=== PATIENT | male | born 1990 | race Caucasian/White ===

== ENCOUNTER 2017-06-23 10:11 | Inpatient (IN) | payer OTHER ==
[2017-06-23 10:36] VITALS: BMI 29.5
--- NOTE | 2017-06-23 15:22 | HP ---
COWS - Scale Resting Pulse: 1= [place] 81-100 Sweatin= Chills/Flushing Restless Observation: 3= Extraneous Movement Pupil Size: 0= Normal to Room Light Bone or Joint Aches: 4=Acute Joint/Muscle Pain Runny Nose/ Eye Tearin= None GI Upset > 30mins: 0= None Tremor Observation: 1= Tremor [place], Not Seen Yawning Observation: 1= 1-2x During Session Anxiety or Irritability: 2=Irritable/Anxious Goose Flesh Skin: 0=Smooth Skin COWS Score: 13 Admission ROS S - HPI Chief Complaint: WITHDRAWAL SX FROM HEROIN Allergies/Adverse Reactions: Allergies Allergy/AdvReac Type Severity Reaction Status Date / Time No Known Allergies Allergy Verified 06/23/17 12:45 History of Present Illness: 26 Y/O H/MALE WITH A HX HEROIN AND COCAINE DEPENDENCE SEEKING DETOX [place]. Exam Limitations: No Limitations - Ebola screening Have you traveled outside of the country in the last 21 days: No Have you had contact with anyone from an Ebola affected area: No Have you been sick,other than usual withdrawal symptoms: No Do you have a fever: No - Review of Systems Constitutional: Chills, Night Sweats EENT: reports: Blurred Vision (WEARS GLASSES), Tearing, Nose Congestion Respiratory: reports: No Symptoms reported Cardiac: reports: Lightheadedness GI: reports: Constipated, Poor Fluid Intake : reports: Dysuria Musculoskeletal: reports: Back Pain, Muscle Pain Integumentary: reports: Bruising (IVD INJ SITES ON BOTH ELBOWS) Neuro: reports: Headache, Dizziness Endocrine: reports: No Symptoms Reported Hematology: reports: No Symptoms Reported Psychiatric: reports: Orientated x3, Anxious Other Systems: Reviewed and Negative Patient History - Patient Medical History Hx Anemia: No Hx Asthma: No Hx Chronic Obstructive Pulmonary Disease (COPD): No Hx Cancer: No Hx Cardiac Disorders: No Hx Congestive Heart Failure: No Hx Hypertension: No Hx Hypercholesterolemia: No Hx Pacemaker: No HX Cerebrovascular Accident: No Hx Seizures: No Hx Dementia: No Hx Diabetes: No Hx Gastrointestinal Disorders: No Hx Liver Disease: No Hx Genitourinary Disorders: No Hx Sexually Transmitted Disorders: Yes (GENITAL HERPES HX) Hx Renal Disease (ESRD): No Hx Thyroid Disease: No Hx Human Immunodeficiency Virus (HIV): No (NEGATIVE HX) Hx Hepatitis C: No Hx Depression: Yes (ON/OFF--WANTS TO SEE PSYCH MD) Hx Suicide Attempt: No (DENIES) Hx Bipolar Disorder: No Hx Schizophrenia: No - Patient Surgical History Past Surgical History: No Hx Neurologic Surgery: No Hx Cataract Extraction: No Hx Cardiac Surgery: No Hx Lung Surgery: No Hx Breast Surgery: No Hx Breast Biopsy: No Hx Abdominal Surgery: No Hx Appendectomy: No Hx Cholecystectomy: No Hx Genitourinary Surgery: No Hx Section: No Hx Orthopedic Surgery: No Anesthesia Reaction: No - PPD History Previous Implant?: Yes Documented Results: Negative w/o proof Date: 08/27/15 Results: 0 mm - Smoking Cessation Smoking history: Current every day smoker Have you smoked in the past 12 months: Yes Aproximately how many cigarettes per day: 20 Cigars Per Day: 0 Hx Chewing Tobacco Use: No Initiated information on smoking cessation: Yes 'Breaking Loose' booklet given: 06/24/17 - Substances Abused Heroin Route: Injection Frequency: Daily Amount used: 5 bags Age of first use: 20 Date of Last Use: 06/22/17 Crack Route: Smoking Frequency: 1-3 times last 30 days Amount used: 1 bag Age of first use: 23 Date of Last Use: 06/22/17 Family Disease History - Family Disease History Family Disease History: Diabetes: Grandparent (GM-) Admission Physical Exam BHS - Vital Signs Vital Signs: Vital Signs - 24 hr 06/23/17 10:33 Temperature 98.1 F Pulse Rate 89 Respiratory 18 Rate Blood Pressure 116/70 - Physical General Appearance: Yes: Moderate Distress, Irritable, Anxious, Other (FATIGUE.) HEENTM: Yes: EOMI, Normocephalic, ROSE[place]N, Pharynx Normal Respiratory: Yes: Chest Non-Tender, Lungs Clear, Normal Breath Sounds, No Respiratory Distress Neck: Yes: No masses,lesions,Nodules, Supple, Trachea in good position Breast: Yes: Breast Exam Deferred Cardiology: Yes: Regular Rhythm, Regular Rate, S1, S2 Abdominal: Yes: Normal Bowel Sounds, Non Tender, Soft Genitourinary: Yes: Other (N/C) Back: Yes: Within Normal Limits Musculoskeletal: Yes: full range of Motion, Gait Steady Extremities: Yes: Normal Range of Motion, Other (HARD PAINFUL SWELLINGS ON BOTH ANTICUBITAL SPACES DUE TO IVD INJ.) Neurological: Yes: agricultural sales representative II-XII NML intact, Fully Oriented, Alert, Motor Strength 5/5 Integumentary: Yes: Dry, Warm Lymphatic: Yes: Within Normal Limits - Diagnostic (1) Abscess of right arm Current Visit: Yes Status: Acute Comment: BOTH ARMS -- RIGHT MORE THAN LEFT ARM. (2) Opioid dependence with withdrawal Current Visit: Yes Status: Acute (3) Cocaine dependence Current Visit: Yes Status: Acute Qualifiers: Substance use status: uncomplicated Qualified Code(s): F14.20 - Cocaine dependence, uncomplicated (4) Nicotine dependence Current Visit: Yes Status: Chronic Qualifiers: Nicotine product type: cigarettes Substance use status: in withdrawal Qualified Code(s): F17.213 - Nicotine dependence, cigarettes, with withdrawal Cleared for Admission [facility] - Detox or Rehab [facility] Level of Care: Medically Managed Detox Regimen/Protocol: Methadone [facility] Breath Alcohol Content Breath Alcohol Content: 0 Urine Drug Screen - Results Drug Screen Negative: No Urine Drug Screen Results: MIRTA-Cocaine, OPI-Opiates, OXY-Oxycodone
[2017-06-23] MEDS ORDERED: NICOTINE POLACRILEX 4 MG GUM BC PRN (15:43)
[2017-06-23] MEDS ORDERED: LOPERAMIDE HCL 2 MG CAPSULE PO PRN (15:43)
[2017-06-23] MEDS ORDERED: P-EPHED 60MG/TRIPROLIDI 2.5MG TABLET PO PRN (15:43)
[2017-06-23] MEDS ORDERED: guaiFENesin/D-METHORPHAN HB 10 ML UNIT-DOSE CUPS PO PRN (15:43)
[2017-06-23] MEDS ORDERED: MAGNESIUM CITRATE 300 ML BOTTLE PO PRN (15:43)
[2017-06-23] MEDS ORDERED: MAG HYDROX/AL HYDROX/SIMETH 30 ML UNIT-DOSE CUP PO PRN (15:43)
[2017-06-23] MEDS ORDERED: MENTHOL/PHENOL 1 EACH UD MM PRN (15:43)
[2017-06-23] MEDS ORDERED: MAGNESIUM HYDROX 2400MG/30ML ORAL SUSPENSION 30 ML CUP PO PRN (15:43)
[2017-06-23] MEDS ORDERED: ACETAMINOPHEN 325 MG TABLET (FP) PO PRN (15:43)
[2017-06-23] MEDS ORDERED: IBUPROFEN 400 MG TABLET (FP) PO PRN (15:43)
[2017-06-23] MEDS ORDERED: METHADONE HCL 10 MG TABLET (FOR DETOX USE ONLY) PO ONE ×2 (15:54→23:00)
[2017-06-23] MEDS ORDERED: METHADONE HCL 10 MG TABLET (FOR DETOX USE ONLY) ONE (18:33)
[2017-06-23] MEDS: diazePAM 5 MG TABLET PO PRN ×2 (18:39→22:01)
[2017-06-23] MEDS: NICOTINE 21 MG/24 HOURS TOPICAL PATCH TD SCH (18:43)
[2017-06-23] MEDS: BACITRACIN 0.9 GM PACKET TP SCH (18:44)
[2017-06-23] MEDS ORDERED: THIAMINE HCL 100 MG TABLET (FP) PO SCH (22:00)
[2017-06-23 22:04] LABS: URINE APPEARANCE CLEAR; URINE BILIRUBIN NEGATIVE (NEGATIVE); URINE BLOOD NEGATIVE (NEGATIVE); URINE COLOR YELLOW; URINE GLUCOSE (UA) NEGATIVE (NEGATIVE); URINE KETONE NEGATIVE (NEGATIVE); URINE LEUK ESTERASE NEGATIVE (NEGATIVE); URINE NITRITE NEGATIVE (NEGATIVE); URINE PROTEIN NEGATIVE (NEGATIVE); URINE UROBILINOGEN NEGATIVE mg/dL (0.2-1.0)
[2017-06-24] MEDS ORDERED: PRENATAL VITAMINS W/ FOLIC ACID TABLET (FP) PO SCH (10:00)
[2017-06-24] MEDS ORDERED: METHADONE HCL 10 MG TABLET (FOR DETOX USE ONLY) PO ONE (10:00)
[2017-06-24] MEDS: BACITRACIN 0.9 GM PACKET TP SCH (10:05)
[2017-06-24] MEDS: NICOTINE 21 MG/24 HOURS TOPICAL PATCH TD SCH (10:05)
[2017-06-24] MEDS: diazePAM 5 MG TABLET PO PRN (10:07)
[2017-06-24 10:08] LABS: ALBUMIN 3.5 g/dl (3.4-5.0); ANION GAP 7 (8-16); BLOOD UREA NITROGEN 13 mg/dL (7-18); CALCIUM 8.7 mg/dL (8.5-10.1); CHLORIDE 103 mmol/L (98-107); CO2 29 mmol/L (21-32); GLUCOSE,RANDOM 83 mg/dL (74-106); POTASSIUM 4.2 mmol/L (3.5-5.1); SODIUM 139 mmol/L (136-145)
[2017-06-24 10:10] LABS: HEMATOCRIT 44.3 % (35.4-49); HEMOGLOBIN 14.7 GM/dL (11.7-16.9); MCH 28.8 pg (25.7-33.7); MCHC 33.2 g/dl (32.0-35.9); MEAN CELL VOLUME 86.6 fl (80-96); MEAN PLT VOLUME 8.7 fl (7.5-11.1); PLATELET COUNT 254 K/MM3 (134-434); RBC 5.12 M/mm3 (4.00-5.60); RDW 12.8 % (11.9-15.9); WHITE BLOOD COUNT 7.2 K/mm3 (4.0-10.0)
[2017-06-24 10:12] LABS: ALK PHOS 55 U/L (45-117); BILIRUBIN,TOTAL 0.5 mg/dL (0.2-1.0); CREATININE 0.8 mg/dL (0.7-1.3); SGOT/AST 21 U/L (15-37); SGPT/ALT 31 U/L (12-78); TOT PROT 6.9 g/dl (6.4-8.2)
--- NOTE | 2017-06-24 10:32 | PN ---
BHS COWS - Scale Resting Pulse: 1= [place] 81-100 Sweatin= Chills/Flushing Restless Observation: 3= Extraneous Movement Pupil Size: 2= Moderately Dilated Bone or Joint Aches: 4=Acute Joint/Muscle Pain Runny Nose/ Eye Tearin= Nasal Congestion GI Upset > 30mins: 1= Stomach Cramp Tremor Observation of Outstretched Hands: 1= Tremor [place], Not Seen Yawning Observation: 1= 1-2x During Session Anxiety or Irritability: 2=Irritable/Anxious Goose Flesh Skin: 0=Smooth Skin COWS Score: 17 S Progress Note (SOAP) Subjective: ANXIETY,SWEATS/CHILLS,DECREASED APPETITE. Objective: 06/24/17 10:31 Vital Signs Temperature 97.5 F L 06/24/17 10:06 Pulse Rate 84 06/24/17 10:06 Respiratory Rate 18 06/24/17 10:06 Blood Pressure 96/67 06/24/17 10:06 O2 Sat by Pulse Oximetry (%) Laboratory Last Values WBC 7.2 K/mm3 (4.0-10.0) 06/24/17 07:00 RBC 5.12 M/mm3 (4.00-5.60) 06/24/17 07:00 Hgb 14.7 GM/dL (11.7-16.9) 06/24/17 07:00 Hct 44.3 % (35.4-49) 06/24/17 07:00 MCV 86.6 fl (80-96) 06/24/17 07:00 MCH 28.8 pg (25.7-33.7) 06/24/17 07:00 MCHC 33.2 g/dl (32.0-35.9) 06/24/17 07:00 RDW 12.8 % (11.9-15.9) 06/24/17 07:00 Plt Count 254 K/MM3 (134-434) D 06/24/17 07:00 MPV 8.7 fl (7.5-11.1) D 06/24/17 07:00 Sodium 139 mmol/L (136-145) 06/24/17 07:00 Potassium 4.2 mmol/L (3.5-5.1) 06/24/17 07:00 Chloride 103 mmol/L (98-107) 06/24/17 07:00 Carbon Dioxide 29 mmol/L (21-32) 06/24/17 07:00 Anion Gap 7 (8-16) L 06/24/17 07:00 BUN 13 mg/dL (7-18) 06/24/17 07:00 Creatinine 0.8 mg/dL (0.7-1.3) 06/24/17 07:00 Creat Clearance w eGFR > 60 (>60) 06/24/17 07:00 Random Glucose 83 mg/dL (74-106) D 06/24/17 07:00 Calcium 8.7 mg/dL (8.5-10.1) 06/24/17 07:00 Total Bilirubin 0.5 mg/dL (0.2-1.0) D 06/24/17 07:00 AST 21 U/L (15-37) D 06/24/17 07:00 ALT 31 U/L (12-78) 06/24/17 07:00 Alkaline Phosphatase 55 U/L (45-117) 06/24/17 07:00 Total Protein 6.9 g/dl (6.4-8.2) 06/24/17 07:00 Albumin 3.5 g/dl (3.4-5.0) 06/24/17 07:00 Urine Color Yellow 06/23/17 21:50 Urine Appearance Clear 06/23/17 21:50 Urine pH 5.0 (5.0-8.0) 06/23/17 21:50 Ur Specific [place] 1.018 (1.001-1.035) 06/23/17 21:50 Urine Protein Negative (NEGATIVE) 06/23/17 21:50 Urine Glucose (UA) Negative (NEGATIVE) 06/23/17 21:50 Urine Ketones Negative (NEGATIVE) 06/23/17 21:50 Urine Blood Negative (NEGATIVE) 06/23/17 21:50 Urine Nitrite Negative (NEGATIVE) 06/23/17 21:50 Urine Bilirubin Negative (NEGATIVE) 06/23/17 21:50 Urine Urobilinogen Negative mg/dL (0.2-1.0) 06/23/17 21:50 Ur Leukocyte Esterase Negative (NEGATIVE) 06/23/17 21:50 Assessment: 06/24/17 10:32 WITHDRAWAL SX Plan: CONTINUE DETOX
[2017-06-24] MEDS ORDERED: SULFAMETHOXAZOLE/TRIMETHOPRIM 800MG/160MG D.S. TABLET PO ONE (10:45)
--- NOTE | 2017-06-24 10:56 | EKG ---
Test Reason : Blood Pressure : / mmHG Vent. Rate : 073 BPM Atrial Rate : 073 BPM P-R Int : 132 ms QRS Dur : 084 ms QT Int : 384 ms P-R-T Axes : 015 063 033 degrees QTc Int : 423 ms NORMAL SINUS RHYTHM NORMAL ECG NO PREVIOUS ECGS AVAILABLE Confirmed by MD Venkata, Bob ([id number]) on 06/24/2017 10:55:37 AM Referred By: Harjeet Mathew Confirmed By:Bob Hastings MD
[2017-06-24] MEDS ORDERED: FLU VACCINE QUAD 60 MCG/0.5 ML (MDV 17-18) IM ONE (12:00)
--- NOTE | 2017-06-24 13:25 | CONSULT ---
[facility] Psychiatric Consult - Data Date of interview: 07/06/16 Admission source: [facility] Identifying data: Pt. is a 26 year old male, single, two kids, and currently unemployed. This is patient's first admission to [facility]. Pt. admitted to for heroin and crack dependence. Substance Abuse History: Following information confirmed with Mr. Joe: - Smoking Cessation. Smoking history: Current every day smoker. Have you smoked in the past 12 months: Yes. Aproximately how many cigarettes per day: 20. Cigars Per Day: 0. Hx Chewing Tobacco Use: No. Initiated information on smoking cessation: Yes. 'Breaking Loose' booklet given: 06/24/17. - Substances Abused. Heroin. Route: Injection. Frequency: Daily. Amount used: 5 bags. Age of first use: 20. Date of Last Use: 06/22/17. Crack. Route: Smoking. Frequency: 1-3 times last 30 days. Amount used: 1 bag. Age of first use: 23. Date of Last Use: 06/22/17 Medical History: Genital herpes Psychiatric History: Pt. denies h/o psychiatric hospitalizations, suicide attempts, and OPC. 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 Denies suicidal and homicidal ideation. Physical/Sexual Abuse/Trauma History: Denies. Mental Status Exam - Mental Status Exam Alert and Oriented to: Time, Place, Person Cognitive Function: Good Patient Appearance: Well Groomed Mood: Withdrawn Affect: Mood Congruent Patient Behavior: Cooperative Speech Pattern: Delayed Voice Loudness: Normal Thought Process: Goal Oriented Thought Disorder: Not Present Hallucinations: Denies Suicidal Ideation: Denies Homicidal Ideation: Denies Insight/Judgement: Poor Sleep: Fair Appetite: Fair Muscle strength/Tone: Normal Gait/Station: Normal Psychiatric Findings - Problem List ([place] 1, 2,3) (1) Opioid dependence with withdrawal Current Visit: Yes Status: Acute (2) Cocaine dependence Current Visit: Yes Status: Acute Qualifiers: Substance use status: uncomplicated Qualified Code(s): F14.20 - Cocaine dependence, uncomplicated (3) Nicotine dependence Current Visit: Yes Status: Chronic Qualifiers: Nicotine product type: cigarettes Substance use status: in withdrawal Qualified Code(s): F17.213 - Nicotine dependence, cigarettes, with withdrawal (4) Substance induced mood disorder Current Visit: No Status: Suspected - Initial Treatment Plan Initial Treatment Plan: Psychoeducation provided. Detoxification provided. Observation.
[2017-06-24 17:19] VITALS: BP 106/65; PULSE 89; TEMP 97
--- NOTE | 2017-06-24 20:44 | DS ---
[facility] Detox Discharge Summary Admission Date: 06/23/17 Discharge Date: 06/24/17 - History Present History: Opioid Dependence Pertinent Past History: PATIENT INSISTS TO LEAVE THE DETOX REFUSES TO WAIT FACE TO FACE WITH THE PROVIDER - Physical Exam Results Vital Signs: Vital Signs Temperature 97 F L 06/24/17 17:17 Pulse Rate 89 06/24/17 17:17 Respiratory Rate 18 06/24/17 17:17 Blood Pressure 106/65 06/24/17 17:17 O2 Sat by Pulse Oximetry (%) Pertinent Admission Physical Exam Findings: WITHDRAWAL SX Vital Signs Temperature 97 F L 06/24/17 17:17 Pulse Rate 89 06/24/17 17:17 Respiratory Rate 18 06/24/17 17:17 Blood Pressure 106/65 06/24/17 17:17 O2 Sat by Pulse Oximetry (%) Laboratory Last Values WBC 7.2 K/mm3 (4.0-10.0) 06/24/17 07:00 RBC 5.12 M/mm3 (4.00-5.60) 06/24/17 07:00 Hgb 14.7 GM/dL (11.7-16.9) 06/24/17 07:00 Hct 44.3 % (35.4-49) 06/24/17 07:00 MCV 86.6 fl (80-96) 06/24/17 07:00 MCH 28.8 pg (25.7-33.7) 06/24/17 07:00 MCHC 33.2 g/dl (32.0-35.9) 06/24/17 07:00 RDW 12.8 % (11.9-15.9) 06/24/17 07:00 Plt Count 254 K/MM3 (134-434) D 06/24/17 07:00 MPV 8.7 fl (7.5-11.1) D 06/24/17 07:00 Sodium 139 mmol/L (136-145) 06/24/17 07:00 Potassium 4.2 mmol/L (3.5-5.1) 06/24/17 07:00 Chloride 103 mmol/L (98-107) 06/24/17 07:00 Carbon Dioxide 29 mmol/L (21-32) 06/24/17 07:00 Anion Gap 7 (8-16) L 06/24/17 07:00 BUN 13 mg/dL (7-18) 06/24/17 07:00 Creatinine 0.8 mg/dL (0.7-1.3) 06/24/17 07:00 Creat Clearance w eGFR > 60 (>60) 06/24/17 07:00 Random Glucose 83 mg/dL (74-106) D 06/24/17 07:00 Calcium 8.7 mg/dL (8.5-10.1) 06/24/17 07:00 Total Bilirubin 0.5 mg/dL (0.2-1.0) D 06/24/17 07:00 AST 21 U/L (15-37) D 06/24/17 07:00 ALT 31 U/L (12-78) 06/24/17 07:00 Alkaline Phosphatase 55 U/L (45-117) 06/24/17 07:00 Total Protein 6.9 g/dl (6.4-8.2) 06/24/17 07:00 Albumin 3.5 g/dl (3.4-5.0) 06/24/17 07:00 Urine Color Yellow 06/23/17 21:50 Urine Appearance Clear 06/23/17 21:50 Urine pH 5.0 (5.0-8.0) 06/23/17 21:50 Ur Specific [place] 1.018 (1.001-1.035) 06/23/17 21:50 Urine Protein Negative (NEGATIVE) 06/23/17 21:50 Urine Glucose (UA) Negative (NEGATIVE) 06/23/17 21:50 Urine Ketones Negative (NEGATIVE) 06/23/17 21:50 Urine Blood Negative (NEGATIVE) 06/23/17 21:50 Urine Nitrite Negative (NEGATIVE) 06/23/17 21:50 Urine Bilirubin Negative (NEGATIVE) 06/23/17 21:50 Urine Urobilinogen Negative mg/dL (0.2-1.0) 06/23/17 21:50 Ur Leukocyte Esterase Negative (NEGATIVE) 06/23/17 21:50 RPR Titer Nonreactive (NONREACTIVE) 06/24/17 07:00 HIV 1&2 Antibody Screen Negative 06/23/17 07:00 HIV P24 Antigen Negative 06/23/17 07:00 LAB NOTED - Treatment Hospital Course: Detox Protocol Followed, Responded well - Medication Discharge Medications: Ambulatory Orders NK [No Known Home Medication] 05/18/14 - Diagnosis (1) Opioid dependence with withdrawal Status: Acute (2) Nicotine dependence Status: Acute Qualifiers: Nicotine product type: cigarettes Substance use status: in withdrawal Qualified Code(s): F17.213 - Nicotine dependence, cigarettes, with withdrawal - AMA Did Patient Leave Against Medical Advice: Yes
[2017-06-24] MEDS ORDERED: SULFAMETHOXAZOLE/TRIMETHOPRIM 800MG/160MG D.S. TABLET PO SCH (22:00)
[2017-06-25] MEDS ORDERED: METHADONE HCL 5 MG TABLET (FOR DETOX USE ONLY) PO ONE (10:00)
[2017-06-26] MEDS ORDERED: METHADONE HCL 5 MG TABLET (FOR DETOX USE ONLY) PO ONE (10:00)
[2017-06-27] MEDS ORDERED: METHADONE HCL 10 MG TABLET (FOR DETOX USE ONLY) PO ONE (10:00)
[2017-06-28] MEDS ORDERED: METHADONE HCL 5 MG TABLET (FOR DETOX USE ONLY) PO ONE (06:00)
== END 2017-06-24 18:45 | disposition left against medical advice (07) | DRG 770 ==
LOC: YASAS 10:11 → Y3N 14:17
PROVIDERS: ADMIT Internal Medicine; ATTEND Internal Medicine
PROC: HZ2ZZZZ Detoxification Services for Substance Abuse Treatment (ICD-10-PCS; principal; 2017-06-23)
DX: F11.23 Opioid dependence with withdrawal (principal); F14.20 Cocaine dependence, uncomplicated; F17.213 Nicotine dependence, cigarettes, with withdrawal; F19.24 Other psychoactive substance dependence with psychoactive substance-induced mood disorder; Z87.438 Personal history of other diseases of male genital organs
CPT/HCPCS: 36415; 80053; 81003; 85027; 86593; 87389; 90688; 93005; 93010

== ENCOUNTER 2018-06-05 12:24 | Inpatient (IN) | payer OTHER ==
[2018-06-05 12:38] VITALS: BMI 31.1
--- NOTE | 2018-06-05 13:11 | HP ---
COWS - Scale Resting Pulse: 1= [place] 81-100 Sweatin= Chills/Flushing Restless Observation: 3= Extraneous Movement Pupil Size: 1= Pupils >than Normal Bone or Joint Aches: 2= Severe Diffuse Aches Runny Nose/ Eye Tearin= Runny Nose/Eyes GI Upset > 30mins: 2= Nausea/Diarrhea Tremor Observation: 2= Slight Tremor Visible Yawning Observation: 1= 1-2x During Session Anxiety or Irritability: 2=Irritable/Anxious Goose Flesh Skin: 0=Smooth Skin COWS Score: 17 CIWA Score - Admission Criteria [facility] Guidelines: Admission for Medically Managed Detox: Requires at least one of the followin. CIWA greater than 12 2. Seizures within the past 24 hours 3. Delirium tremens within the past 24 hours 4. Hallucinations within the past 24 hours 5. Acute intervention needed for co occurring medical disorder 6. Acute intervention needed for co occurring psychiatric disorder 7. Severe withdrawal that cannot be handled at a lower level of care (continued vomiting, continued diarrhea, abnormal vital signs) requiring intravenous medication and/or fluids 8. Admission ROS S - HPI Chief Complaint: i need help to stop using heroin Allergies/Adverse Reactions: Allergies Allergy/AdvReac Type Severity Reaction Status Date / Time No Known Allergies Allergy Verified 06/05/18 13:00 History of Present Illness: this 27 years old male with heroin dependence seeking detox,withdrawal symptom, last detox 06/23/17 to 06/24/17 not completed withdrawal symptom s/p surgery for abscess of right scrotal area in 04/26 iv drug abused cellulitis of left elbow for 3 days nicotine dependence weight loss longest period of sobriety 11 months Exam Limitations: No Limitations - Ebola screening Have you traveled outside of the country in the last 21 days: No Have you been sick,other than usual withdrawal symptoms: No - Review of Systems Constitutional: Chills, Loss of Appetite, Malaise, Night Sweats, Weakness, Unintentional Wgt. Loss EENT: reports: Tearing, Nose Congestion Respiratory: reports: No Symptoms reported Cardiac: reports: No Symptoms Reported GI: reports: Diarrhea, Nausea, Vomiting, Abdominal cramping : reports: No Symptoms Reported Musculoskeletal: reports: Back Pain, Joint Pain, Muscle Pain, Joint Stiffness Integumentary: reports: Dryness, Other (cellulitis left elbow) Neuro: reports: Headache, Tremors Endocrine: reports: No Symptoms Reported Hematology: reports: No Symptoms Reported Psychiatric: reports: No Sypmtoms Reported, Judgement Intact, Mood/Affect Appropiate, Orientated x3 Patient History - Patient Medical History Hx Anemia: No Hx Asthma: No Hx Chronic Obstructive Pulmonary Disease (COPD): No Hx Cancer: No Hx Cardiac Disorders: No Hx Congestive Heart Failure: No Hx Hypertension: No Hx Hypercholesterolemia: No Hx Pacemaker: No HX Cerebrovascular Accident: No Hx Seizures: No Hx Dementia: No Hx Diabetes: No Hx Gastrointestinal Disorders: No Hx Liver Disease: No Hx Genitourinary Disorders: Yes (abscess of right scrotal area 04/26 requiring i &D) Hx Sexually Transmitted Disorders: Yes (GENITAL HERPES HX) Hx Renal Disease (ESRD): No Hx Thyroid Disease: No Hx Human Immunodeficiency Virus (HIV): No (NEGATIVE HX) Hx Hepatitis C: No Hx Depression: Yes (ON/OFF--WANTS TO SEE PSYCH MD) Hx Suicide Attempt: No (DENIES) Hx Bipolar Disorder: No Hx Schizophrenia: No Other Medical History: no suicidal,no homicidal - Patient Surgical History Past Surgical History: No Hx Neurologic Surgery: No Hx Cataract Extraction: No Hx Cardiac Surgery: No Hx Lung Surgery: No Hx Breast Surgery: No Hx Breast Biopsy: No Hx Abdominal Surgery: No Hx Appendectomy: No Hx Cholecystectomy: No Hx Genitourinary Surgery: No Hx Section: No Hx Orthopedic Surgery: No Other Surgical History: i&d abcess of right srotal area in 04/26 Anesthesia Reaction: No - PPD History Previous Implant?: Yes Documented Results: Negative w/o proof Date: 08/27/15 Results: 0 mm PPD to be Administered?: Yes - Smoking Cessation Smoking history: Current every day smoker Have you smoked in the past 12 months: Yes Aproximately how many cigarettes per day: 20 Cigars Per Day: 0 Hx Chewing Tobacco Use: No Initiated information on smoking cessation: Yes 'Breaking Loose' booklet given: 06/05/18 - Substance & Tx. History Hx Alcohol Use: No Hx Substance Use: Yes Substance Use Type: Cocaine, Heroin Hx Substance Use Treatment: Yes ([facility] 06/23/17 to 06/24/17 not completed) - Substances Abused Heroin Route: Injection Frequency: Daily Amount used: 4 BAGS Age of first use: 18 Date of Last Use: 06/04/18 Crack Route: Smoking Frequency: Daily Amount used: 3 BAGS Age of first use: 18 Date of Last Use: 06/04/18 Family Disease History - Family Disease History Family Disease History: Diabetes: Grandparent (GM-) Admission Physical Exam [facility] - Vital Signs Vital Signs: Vital Signs - 24 hr 06/05/18 12:36 Temperature 97.5 F L Pulse Rate 89 Respiratory 20 Rate Blood Pressure 125/77 - Physical General Appearance: Yes: Moderate Distress, Tremorous, Irritable, Sweating, Anxious HEENTM: Yes: Normal ENT Inspection, [place], Pharynx Normal Respiratory: Yes: Within Normal Limits, Lungs Clear, Normal Breath Sounds Neck: Yes: Within Normal Limits, Supple, Trachea in good position Breast: Yes: Within Normal Limits Cardiology: Yes: Within Normal Limits, Regular Rhythm, Regular Rate, S1, S2 Abdominal: Yes: Within Normal Limits, Normal Bowel Sounds, Non Tender, Flat, Soft Genitourinary: Yes: Within Normal Limits Back: Yes: Muscle Spasm Musculoskeletal: Yes: Back pain, Joint Stiffness, Muscle Pain Extremities: Yes: Within Normal Limits, Normal Range of Motion, Tremors 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, Alert, Motor Strength 5/5 Integumentary: Yes: Dry, [place] (cellulitis of left elbow) Lymphatic: Yes: Within Normal Limits - Diagnostic (1) Opioid dependence with withdrawal Status: Acute (2) Weight decreased Status: Chronic (3) Cellulitis of left forearm Status: Acute (4) Cocaine dependence Status: Chronic Qualifiers: Substance use status: uncomplicated Qualified Code(s): F14.20 - Cocaine dependence, uncomplicated (5) Nicotine dependence Status: Acute Qualifiers: Nicotine product type: cigarettes Substance use status: in withdrawal Qualified Code(s): F17.213 - Nicotine dependence, cigarettes, with withdrawal (6) IVDU (intravenous drug user) Status: Acute (7) Cellulitis of left elbow Status: Acute (8) Scrotal abscess Status: Acute Cleared for Admission [facility] - Detox or Rehab [facility] Level of Care: Medically Managed Detox Regimen/Protocol: Methadone [facility] Breath Alcohol Content Breath Alcohol Content: 0 Urine Drug Screen - Results Drug Screen Negative: No Urine Drug Screen Results: MIRTA-Cocaine, OPI-Opiates, MTD-Methadone, FEN-Fentanyl
[2018-06-05] MEDS ORDERED: P-EPHED 60MG/TRIPROLIDI 2.5MG TABLET PO PRN (13:23)
[2018-06-05] MEDS ORDERED: MAGNESIUM HYDROX 2400MG/30ML ORAL SUSPENSION 30 ML CUP PO PRN (13:23)
[2018-06-05] MEDS ORDERED: MAG HYDROX/AL HYDROX/SIMETH 30 ML UNIT-DOSE CUP PO PRN (13:23)
[2018-06-05] MEDS ORDERED: MENTHOL/PHENOL 1 EACH UD MM PRN (13:23)
[2018-06-05] MEDS ORDERED: IBUPROFEN 400 MG TABLET (FP) PO PRN (13:23)
[2018-06-05] MEDS ORDERED: ACETAMINOPHEN 325 MG TABLET (FP) PO PRN (13:23)
[2018-06-05] MEDS ORDERED: MAGNESIUM CITRATE 300 ML BOTTLE PO PRN (13:23)
[2018-06-05] MEDS ORDERED: LOPERAMIDE HCL 2 MG CAPSULE PO PRN (13:23)
[2018-06-05] MEDS ORDERED: guaiFENesin/D-METHORPHAN HB 10 ML UNIT-DOSE CUPS PO PRN (13:23)
[2018-06-05] MEDS ORDERED: hydrOXYzine PAMOATE 25 MG CAPSULE (FP) PO PRN (13:23)
[2018-06-05] MEDS ORDERED: CYCLOBENZAPRINE HCL 10 MG TABLET (FP) PO PRN (13:30)
[2018-06-05] MEDS ORDERED: METHADONE HCL 10 MG TABLET (FOR DETOX USE ONLY) PO ONE ×2 (14:30→23:00)
[2018-06-05] MEDS: diazePAM 5 MG TABLET PO PRN ×2 (15:27→22:07)
[2018-06-05] MEDS: CLINDAMYCIN HCL 150 MG CAPSULE (FP) PO SCH ×2 (15:27→22:07)
[2018-06-05] MEDS: NICOTINE 21 MG/24 HOURS TOPICAL PATCH TD SCH (15:48)
[2018-06-05] MEDS ORDERED: MELATONIN 5 MG TABLETS PO PRN (22:00)
[2018-06-05] MEDS: SULFAMETHOXAZOLE/TRIMETHOPRIM 800MG/160MG D.S. TABLET PO SCH (22:07)
[2018-06-05] MEDS: THIAMINE HCL 100 MG TABLET (FP) PO SCH (22:07)
[2018-06-05] MEDS: cloNIDine HCL 0.1 MG TABLET PO SCH (22:07)
[2018-06-06] MEDS: CLINDAMYCIN HCL 150 MG CAPSULE (FP) PO SCH ×3 (05:48→22:10)
[2018-06-06] MEDS: diazePAM 5 MG TABLET PO PRN ×4 (05:48→22:11)
[2018-06-06] MEDS ORDERED: METHADONE HCL 10 MG TABLET (FOR DETOX USE ONLY) PO ONE (10:00)
[2018-06-06] MEDS: NICOTINE 21 MG/24 HOURS TOPICAL PATCH TD SCH (10:49)
[2018-06-06] MEDS: PRENATAL VITAMINS W/ FOLIC ACID TABLET (FP) PO SCH (10:50)
[2018-06-06] MEDS: cloNIDine HCL 0.1 MG TABLET PO SCH ×2 (10:50→22:10)
[2018-06-06] MEDS: SULFAMETHOXAZOLE/TRIMETHOPRIM 800MG/160MG D.S. TABLET PO SCH ×2 (10:50→22:11)
[2018-06-06 11:13] LABS: HEMATOCRIT 42.3 % (35.4-49); HEMOGLOBIN 14.2 GM/dL (11.7-16.9); MCH 30.3 pg (25.7-33.7); MCHC 33.6 g/dl (32.0-35.9); MEAN CELL VOLUME 90.3 fl (80-96); MEAN PLT VOLUME 9.6 fl (7.5-11.1); PLATELET COUNT 282 K/MM3 (134-434); RBC 4.69 M/mm3 (4.00-5.60); RDW 12.5 % (11.9-15.9); WHITE BLOOD COUNT 7.6 K/mm3 (4.0-10.0)
[2018-06-06 11:40] LABS: ALBUMIN 3.8 g/dl (3.4-5.0); ALK PHOS 71 U/L (45-117); ANION GAP 6 MMOL/L (8-16); BILIRUBIN,TOTAL 0.4 mg/dL (0.2-1); BLOOD UREA NITROGEN 12 mg/dL (7-18); CALCIUM 8.9 mg/dL (8.5-10.1); CHLORIDE 100 mmol/L (98-107); CO2 28 mmol/L (21-32); GLUCOSE,RANDOM 90 mg/dL (74-106); POTASSIUM 4.2 mmol/L (3.5-5.1); SGOT/AST 25 U/L (15-37); SGPT/ALT 34 U/L (13-61); SODIUM 134 mmol/L (136-145); TOT PROT 7.4 g/dl (6.4-8.2)
[2018-06-06] MEDS ORDERED: FLU VACCINE QUAD 60 MCG/0.5 ML (MDV 18-19) IM ONE (12:00)
--- NOTE | 2018-06-06 15:50 | PN ---
BHS COWS - Scale Resting Pulse: 2= [place] 101-120 Sweatin= Chills/Flushing Restless Observation: 1= Difficult to Sit Still Pupil Size: 0= Normal to Room Light Bone or Joint Aches: 0= None Runny Nose/ Eye Tearin= None GI Upset > 30mins: 0= None Tremor Observation of Outstretched Hands: 0= None Yawning Observation: 1= 1-2x During Session Anxiety or Irritability: 2=Irritable/Anxious Goose Flesh Skin: 3=Piloerection COWS Score: 10 BHS Progress Note (SOAP) Subjective: Constipation, Fatigue, Sweating. Objective: PATIENT A & O X 3, OBSERVED AMBULATING ON UNIT. IN NO ACUTE DISTRESS. 06/06/18 15:49 Vital Signs Temperature 96.8 F L 06/06/18 14:13 Pulse Rate 111 H 06/06/18 14:13 Respiratory Rate 16 06/06/18 14:13 Blood Pressure 104/71 06/06/18 14:13 O2 Sat by Pulse Oximetry (%) Laboratory Tests 06/06/18 06/06/18 06/06/18 05:45 05:45 05:45 WBC 7.6 RBC 4.69 Hgb 14.2 Hct 42.3 MCV 90.3 MCH 30.3 MCHC 33.6 RDW 12.5 Plt Count 282 MPV 9.6 D Sodium 134 L Potassium 4.2 Chloride 100 Carbon Dioxide 28 Anion Gap 6 L BUN 12 Creatinine 1.0 Creat Clearance w eGFR > 60 Random Glucose 90 Calcium 8.9 Total Bilirubin 0.4 AST 25 ALT 34 Alkaline Phosphatase 71 Total Protein 7.4 Albumin 3.8 RPR Titer HIV 1&2 Antibody Screen Negative HIV P24 Antigen Negative 06/06/18 05:45 WBC RBC Hgb Hct MCV MCH MCHC RDW Plt Count MPV Sodium Potassium Chloride Carbon Dioxide Anion Gap BUN Creatinine Creat Clearance w eGFR Random Glucose Calcium Total Bilirubin AST ALT Alkaline Phosphatase Total Protein Albumin RPR Titer Nonreactive HIV 1&2 Antibody Screen HIV P24 Antigen LABS NOTED. Assessment: 06/06/18 15:49 WITHDRAWAL SYMPTOMS. Plan: CONTINUE DETOX.
--- NOTE | 2018-06-06 16:11 | CONSULT ---
[facility] Psychiatric Consult - Data Date of interview: 06/06/18 Admission source: [facility] Identifying data: This is one of several admissions to [facility] for this 27 y/ o male seeking detoxification treatment, on 3 , for heroin and cocaine dependence. Patient is single without dependents, domiciled, unemployed and supported by relatives. Substance Abuse History: Discussed with patient. Mr Joe confirmed current [facility] report : Smoking history: Current every day smoker. Have you smoked in the past 12 months: Yes. Aproximately how many cigarettes per day: 20. Cigars Per Day: 0. Hx Chewing Tobacco Use: No. Initiated information on smoking cessation : Yes. 'Breaking Loose' booklet given: 06/05/18. - Substance & Tx. History. Hx Alcohol Use: No. Hx Substance Use: Yes. Substance Use Type: Cocaine, Heroin. Hx Substance Use Treatment: Yes ([facility] 06/23/17 to 06/24/17 not completed) Medical History: Taken from [facility] report : genital herpes, recent history of surgery for abcess of right scrotal region and cellulitis of left elbow. Psychiatric History: Patient denies history of psychiatric hospitalizations, OPD care or suicide attempts. Physical/Sexual Abuse/Trauma History: Patient denies. Additional Comment: Urine Drug Screen Results: MIRTA-Cocaine, OPI-Opiates, MTD- Methadone, FEN-Fentanyl. Noted. Mental Status Exam - Mental Status Exam Alert and Oriented to: Time, Place, Person Cognitive Function: Good Patient Appearance: Well Groomed (tattoos all over arms + forearms) Mood: Nervous, Withdrawn, Irritable Affect: Mood Congruent, Constricted Patient Behavior: Fatigued, Guarded, Cooperative (superficially cooperative) Speech Pattern: Clear Voice Loudness: Normal Thought Process: Goal Oriented Thought Disorder: Not Present Hallucinations: Denies Suicidal Ideation: Denies Homicidal Ideation: Denies Insight/Judgement: Poor Sleep: Well Appetite: Good Muscle strength/Tone: Normal Gait/Station: Normal Psychiatric Findings - Problem List ([place] 1, 2,3) (1) Opioid dependence with withdrawal Current Visit: Yes Status: Acute (2) Cocaine dependence Current Visit: Yes Status: Chronic Qualifiers: Substance use status: uncomplicated Qualified Code(s): F14.20 - Cocaine dependence, uncomplicated (3) Nicotine dependence Current Visit: Yes Status: Chronic Qualifiers: Nicotine product type: cigarettes Substance use status: in withdrawal Qualified Code(s): F17.213 - Nicotine dependence, cigarettes, with withdrawal (4) Substance induced mood disorder Current Visit: Yes Status: Suspected - Initial Treatment Plan Initial Treatment Plan: Psychoeducation. Sleep hygiene. Detoxification. Support. NA meetings. Counseling. Observation.
[2018-06-06] MEDS: THIAMINE HCL 100 MG TABLET (FP) PO SCH (22:10)
[2018-06-07] MEDS: diazePAM 5 MG TABLET PO PRN ×2 (03:46→13:43)
[2018-06-07] MEDS: CLINDAMYCIN HCL 150 MG CAPSULE (FP) PO SCH ×3 (05:58→22:17)
[2018-06-07] MEDS ORDERED: METHADONE HCL 5 MG TABLET (FOR DETOX USE ONLY) PO ONE (10:00)
[2018-06-07] MEDS: PRENATAL VITAMINS W/ FOLIC ACID TABLET (FP) PO SCH (10:52)
[2018-06-07] MEDS: NICOTINE 21 MG/24 HOURS TOPICAL PATCH TD SCH (10:53)
[2018-06-07] MEDS: cloNIDine HCL 0.1 MG TABLET PO SCH ×2 (10:53→22:17)
[2018-06-07] MEDS: SULFAMETHOXAZOLE/TRIMETHOPRIM 800MG/160MG D.S. TABLET PO SCH ×2 (10:55→22:15)
--- NOTE | 2018-06-07 14:36 | PN ---
BHS COWS - Scale Resting Pulse: 1= [place] 81-100 Sweatin= Chills/Flushing Restless Observation: 3= Extraneous Movement Pupil Size: 0= Normal to Room Light Bone or Joint Aches: 2= Severe Diffuse Aches Runny Nose/ Eye Tearin= Runny Nose/Eyes GI Upset > 30mins: 1= Stomach Cramp Tremor Observation of Outstretched Hands: 2= Slight Tremor Visible Yawning Observation: 0= None Anxiety or Irritability: 1=Feels Anxious/Irritable Goose Flesh Skin: 0=Smooth Skin COWS Score: 13 S Progress Note (SOAP) Subjective: Feeling tired, sweating Objective: 06/07/18 14:34 Last Vital Signs Temp Pulse Resp BP Pulse Ox 97.9 F 94 H 20 91/58 L 06/07/18 13:21 06/07/18 13:21 06/07/18 13:21 06/07/18 13:21 Hypotension noted: 91/58 Laboratory Tests 06/06/18 06/06/18 06/06/18 05:45 05:45 05:45 WBC 7.6 RBC 4.69 Hgb 14.2 Hct 42.3 MCV 90.3 MCH 30.3 MCHC 33.6 RDW 12.5 Plt Count 282 MPV 9.6 D Sodium 134 L Potassium 4.2 Chloride 100 Carbon Dioxide 28 Anion Gap 6 L BUN 12 Creatinine 1.0 Creat Clearance w eGFR > 60 Random Glucose 90 Calcium 8.9 Total Bilirubin 0.4 AST 25 ALT 34 Alkaline Phosphatase 71 Total Protein 7.4 Albumin 3.8 RPR Titer HIV 1&2 Antibody Screen Negative HIV P24 Antigen Negative 06/06/18 05:45 WBC RBC Hgb Hct MCV MCH MCHC RDW Plt Count MPV Sodium Potassium Chloride Carbon Dioxide Anion Gap BUN Creatinine Creat Clearance w eGFR Random Glucose Calcium Total Bilirubin AST ALT Alkaline Phosphatase Total Protein Albumin RPR Titer Nonreactive HIV 1&2 Antibody Screen HIV P24 Antigen Labs reviewed Assessment: 06/07/18 14:34 Withdrawal symptoms Noted with hypotension Plan: Continue detox Hypotension: asymptomatic, encouraged PO water intake
[2018-06-07] MEDS: THIAMINE HCL 100 MG TABLET (FP) PO SCH (22:15)
[2018-06-08] MEDS: diazePAM 5 MG TABLET PO PRN (05:12)
[2018-06-08] MEDS: CLINDAMYCIN HCL 150 MG CAPSULE (FP) PO SCH (05:12)
[2018-06-08 09:24] VITALS: BP 99/61; PULSE 96; TEMP 97.3
[2018-06-08] MEDS: NICOTINE 21 MG/24 HOURS TOPICAL PATCH TD SCH (09:55)
[2018-06-08] MEDS: cloNIDine HCL 0.1 MG TABLET PO SCH (09:55)
[2018-06-08] MEDS: SULFAMETHOXAZOLE/TRIMETHOPRIM 800MG/160MG D.S. TABLET PO SCH (09:55)
[2018-06-08] MEDS: PRENATAL VITAMINS W/ FOLIC ACID TABLET (FP) PO SCH (09:56)
[2018-06-08] MEDS ORDERED: METHADONE HCL 5 MG TABLET (FOR DETOX USE ONLY) PO ONE (10:00)
--- NOTE | 2018-06-08 10:26 | DS ---
[facility] Detox Discharge Summary Admission Date: 06/05/18 Discharge Date: 06/08/18 - History Present History: Opioid Dependence Additional Comments: 27 years old male admitted on 06/05/18 for opiate withdrawal stabilization insists to leave the detox unit today agrees to follow up with [facility] services alert no acute distress denies suicidal denies homocidal no self destructive behavior Pertinent Past History: patient received negative HIV test result decided to leave the detox unit discussed community health services perform HIV testing as well discussed safe sax patient preferred to leave the detox unit immediately - Physical Exam Results Vital Signs: Vital Signs Temperature 97.3 F L 06/08/18 09:23 Pulse Rate 96 H 06/08/18 09:23 Respiratory Rate 18 06/08/18 09:23 Blood Pressure 99/61 06/08/18 09:23 O2 Sat by Pulse Oximetry (%) Pertinent Admission Physical Exam Findings: opiate withdrawal sx Laboratory Last Values WBC 7.6 K/mm3 (4.0-10.0) 06/06/18 05:45 RBC 4.69 M/mm3 (4.00-5.60) 06/06/18 05:45 Hgb 14.2 GM/dL (11.7-16.9) 06/06/18 05:45 Hct 42.3 % (35.4-49) 06/06/18 05:45 MCV 90.3 fl (80-96) 06/06/18 05:45 MCH 30.3 pg (25.7-33.7) 06/06/18 05:45 MCHC 33.6 g/dl (32.0-35.9) 06/06/18 05:45 RDW 12.5 % (11.9-15.9) 06/06/18 05:45 Plt Count 282 K/MM3 (134-434) 06/06/18 05:45 MPV 9.6 fl (7.5-11.1) D 06/06/18 05:45 Sodium 134 mmol/L (136-145) L 06/06/18 05:45 Potassium 4.2 mmol/L (3.5-5.1) 06/06/18 05:45 Chloride 100 mmol/L (98-107) 06/06/18 05:45 Carbon Dioxide 28 mmol/L (21-32) 06/06/18 05:45 Anion Gap 6 MMOL/L (8-16) L 06/06/18 05:45 BUN 12 mg/dL (7-18) 06/06/18 05:45 Creatinine 1.0 mg/dL (0.55-1.3) 06/06/18 05:45 Creat Clearance w eGFR > 60 (>60) 06/06/18 05:45 Random Glucose 90 mg/dL (74-106) 06/06/18 05:45 Calcium 8.9 mg/dL (8.5-10.1) 06/06/18 05:45 Total Bilirubin 0.4 mg/dL (0.2-1) 06/06/18 05:45 AST 25 U/L (15-37) 06/06/18 05:45 ALT 34 U/L (13-61) 06/06/18 05:45 Alkaline Phosphatase 71 U/L (45-117) 06/06/18 05:45 Total Protein 7.4 g/dl (6.4-8.2) 06/06/18 05:45 Albumin 3.8 g/dl (3.4-5.0) 06/06/18 05:45 RPR Titer Nonreactive (NONREACTIVE) 06/06/18 05:45 HIV 1&2 Antibody Screen Negative 06/06/18 05:45 HIV P24 Antigen Negative 06/06/18 05:45 lab noted - Treatment Hospital Course: Detox Protocol Followed, Responded well Patient has Accepted a Rehab Referral to: General acute hospital - Medication Discharge Medications: Ambulatory Orders NK [No Known Home Medication] 05/18/14 - Diagnosis (1) Opioid dependence with withdrawal Current Visit: Yes Status: Acute (2) Nicotine dependence Current Visit: Yes Status: Acute Qualifiers: Nicotine product type: cigarettes Substance use status: in withdrawal Qualified Code(s): F17.213 - Nicotine dependence, cigarettes, with withdrawal (3) Substance induced mood disorder Current Visit: Yes Status: Suspected - AMA Did Patient Leave Against Medical Advice: Yes
[2018-06-09] MEDS ORDERED: METHADONE HCL 10 MG TABLET (FOR DETOX USE ONLY) PO ONE (10:00)
[2018-06-10] MEDS ORDERED: METHADONE HCL 5 MG TABLET (FOR DETOX USE ONLY) PO ONE (06:00)
== END 2018-06-08 09:38 | disposition left against medical advice (07) | DRG 770 ==
LOC: YASAS 12:24 → Y3N 13:36
PROC: HZ2ZZZZ Detoxification Services for Substance Abuse Treatment (ICD-10-PCS; principal; 2018-06-05)
DX: F11.23 Opioid dependence with withdrawal (principal); F14.20 Cocaine dependence, uncomplicated; F17.213 Nicotine dependence, cigarettes, with withdrawal; F19.24 Other psychoactive substance dependence with psychoactive substance-induced mood disorder; I95.9 Hypotension, unspecified; L03.114 Cellulitis of left upper limb; Z87.438 Personal history of other diseases of male genital organs
CPT/HCPCS: 36415; 80053; 85027; 86593; 87389; 90688; G0008; J0735

== ENCOUNTER 2019-04-21 12:47 | Inpatient (IN) | payer OTHER ==
[2019-04-21 13:55] VITALS: BMI 29.5
--- NOTE | 2019-04-21 14:26 | HP ---
COWS - Scale Resting Pulse: 1= [place] 81-100 Sweatin= Chills/Flushing Restless Observation: 1= Difficult to Sit Still Pupil Size: 1= Pupils >than Normal Bone or Joint Aches: 2= Severe Diffuse Aches Runny Nose/ Eye Tearin= Nasal Congestion GI Upset > 30mins: 1= Stomach Cramp Tremor Observation: 0= None Yawning Observation: 0= None Anxiety or Irritability: 2=Irritable/Anxious Goose Flesh Skin: 0=Smooth Skin COWS Score: 10 CIWA Score - Admission Criteria OASAS Guidelines: Admission for Medically Managed Detox: Requires at least one of the followin. CIWA greater than 12 2. Seizures within the past 24 hours 3. Delirium tremens within the past 24 hours 4. Hallucinations within the past 24 hours 5. Acute intervention needed for co occurring medical disorder 6. Acute intervention needed for co occurring psychiatric disorder 7. Severe withdrawal that cannot be handled at a lower level of care (continued vomiting, continued diarrhea, abnormal vital signs) requiring intravenous medication and/or fluids 8. Admitting History and Physical - Admission History of Present Illness: Pt is a 28 year old M with PMHx of herpes genitalia, here for heroine detox Was here last 05/2018 Heroin: Pt for heroin detox, iv use, prior abscess LUE, does not share needles Uses 4 bags a day hs been using daily since 03/[address] [place] 10 months after last detox until 03/18/19 Family brought him back clean from heroin but using cocaine while out there and wanted to find gainful employment but unable to Has not been in a methadone program before Never overdosed and never used narcane in past Wants HIV test Cocaine: Last use 1 week ago Cocaine use in [facility] Last use week 1 pint No seizures in past Pt used alcohol in Fentanyl Pt thinks heroine was laced with cocaine Opiates In urine, pt denies use Nicotine 1PPD Started at 16years Wants the patch History Source: Patient, Medical Record - Smoking History Smoking history: Current every day smoker Have you smoked in the past 12 months: Yes Aproximately how many cigarettes per day: 20 - Alcohol/Substance Use Hx Alcohol Use: No Admission ROS BHS - HPI Allergies/Adverse Reactions: Allergies Allergy/AdvReac Type Severity Reaction Status Date / Time No Known Allergies Allergy Verified 04/21/19 13:51 - Ebola screening Have you traveled outside of the country in the last 21 days: No Have you had contact with anyone from an Ebola affected area: No Do you have a fever: No - Review of Systems Constitutional: Chills EENT: reports: No Symptoms Reported Respiratory: reports: No Symptoms reported Cardiac: reports: No Symptoms Reported GI: reports: Constipated, Indigestion : reports: Other (hesitancy) Musculoskeletal: reports: Back Pain Integumentary: reports: Other (track cheung) Neuro: reports: No Symptoms reported Endocrine: reports: No Symptoms Reported Hematology: reports: No Symptoms Reported Psychiatric: reports: Depressed (No suiccidal or homicidal ideation) Patient History - Patient Medical History Hx Anemia: No Hx Asthma: No Hx Chronic Obstructive Pulmonary Disease (COPD): No Hx Cancer: No Hx Cardiac Disorders: No Hx Congestive Heart Failure: No Hx Hypertension: No Hx Hypercholesterolemia: No Hx Pacemaker: No HX Cerebrovascular Accident: No Hx Seizures: No Hx Dementia: No Hx Diabetes: No Hx Gastrointestinal Disorders: No Hx Liver Disease: No Hx Genitourinary Disorders: Yes (abscess of right scrotal area 04/26 requiring i &D) Hx Sexually Transmitted Disorders: Yes (GENITAL HERPES HX) Hx Renal Disease (ESRD): No Hx Thyroid Disease: No Hx Human Immunodeficiency Virus (HIV): No (NEGATIVE HX) Hx Hepatitis C: No Hx Depression: Yes (ON/OFF--WANTS TO SEE PSYCH MD) Hx Suicide Attempt: No (DENIES) Hx Bipolar Disorder: No Hx Schizophrenia: No - Patient Surgical History Past Surgical History: No Hx Neurologic Surgery: No Hx Cataract Extraction: No Hx Cardiac Surgery: No Hx Lung Surgery: No Hx Breast Surgery: No Hx Breast Biopsy: No Hx Abdominal Surgery: No Hx Appendectomy: No Hx Cholecystectomy: No Hx Genitourinary Surgery: No Hx Section: No Hx Orthopedic Surgery: No Other Surgical History: i&d abcess of right srotal area in 04/26 Anesthesia Reaction: No - PPD History Date: 08/27/15 Results: 0 mm - Smoking Cessation Smoking history: Current every day smoker Have you smoked in the past 12 months: Yes Aproximately how many cigarettes per day: 20 Cigars Per Day: 0 Hx Chewing Tobacco Use: No Initiated information on smoking cessation: Yes 'Breaking Loose' booklet given: 04/21/19 - Substance & Tx. History Hx Alcohol Use: Yes Hx Substance Use: Yes Substance Use Type: Cocaine, Heroin Hx Substance Use Treatment: Yes - Substances abused Heroin Substance route: Injection Frequency: Daily Amount used: 4 BAGS Age of first use: 18 Date of last use: 04/20/19 Admission Physical Exam [facility] - Vital Signs Vital Signs: Vital Signs - 24 hr 04/21/19 13:49 Temperature 98.2 F Pulse Rate 102 H Respiratory 20 Rate Blood Pressure 131/83 - Physical General Appearance: Yes: Anxious HEENTM: Yes: EOMI Respiratory: Yes: Chest Non-Tender, Lungs Clear, Normal Breath Sounds Neck: Yes: Within Normal Limits Breast: Yes: Breast Exam Deferred Cardiology: Yes: Regular Rhythm, Regular Rate, S1, S2 Abdominal: No: Tenderness Genitourinary: Yes: Pain Back: No: Vertebral Tenderness Musculoskeletal: Yes: Back pain Extremities: Yes: Pedal Edema (mild pedal edema) Neurological: Yes: Alert Integumentary: Yes: Within Normal Limits - Diagnostic (1) Opioid dependence with withdrawal Current Visit: No Status: Acute Cleared for Admission [facility] - Detox or Rehab [facility] Level of Care: Medically Managed Detox Regimen/Protocol: Methadone Breathalyzer - Breathalyzer Breathalyzer: 0 Urine Drug Screen - Test Device Lot number: [id number] Expiration date: 01/06/21 - Control Is test valid?: Yes - Results Drug screen NEGATIVE: No Urine drug screen results: FEN-Fentanyl, MOP-Opiates Inpatient Rehab Admission - Rehab Decision to Admit Inpatient rehab admission?: No
[2019-04-21] MEDS ORDERED: MENTHOL/PHENOL 1 EACH UD MM PRN (14:51)
[2019-04-21] MEDS ORDERED: METHOCARBAMOL 500 MG TABLET PO PRN (14:51)
[2019-04-21] MEDS ORDERED: MAGNESIUM CITRATE 300 ML BOTTLE PO PRN (14:51)
[2019-04-21] MEDS ORDERED: IBUPROFEN 400 MG TABLET (FP) PO PRN (14:51)
[2019-04-21] MEDS ORDERED: cloNIDine HCL 0.1 MG TABLET PO PRN (14:51)
[2019-04-21] MEDS ORDERED: MAGNESIUM HYDROX 2400MG/30ML ORAL SUSPENSION 30 ML CUP PO PRN (14:51)
[2019-04-21] MEDS ORDERED: NICOTINE POLACRILEX 2 MG GUM BUC PRN (14:51)
[2019-04-21] MEDS ORDERED: ACETAMINOPHEN 325 MG TABLET (FP) PO PRN ×2 (14:51)
[2019-04-21] MEDS ORDERED: MAG HYDROX/AL HYDROX/SIMETH 30 ML UNIT-DOSE CUP PO PRN (14:51)
[2019-04-21] MEDS ORDERED: METHADONE HCL 10 MG TABLET (FOR DETOX USE ONLY) PO ONE (14:51)
[2019-04-21] MEDS ORDERED: BISMUTH SUBSALICYLATE 524 MG/30 ML UD PO PRN (14:51)
--- NOTE | 2019-04-21 15:42 | PN ---
Teaching Attending Note Name of Resident: Carrol Walter ATTENDING PHYSICIAN STATEMENT I saw and evaluated the patient. I reviewed the resident's note and discussed the case with the resident. I agree with the resident's findings and plan as documented. SUBJECTIVE: Agree with subjective findings or resident OBJECTIVE: Agree with objective findings of resident ASSESSMENT AND PLAN: Agree with plans for admission to detox.
[2019-04-21] MEDS: hydrOXYzine PAMOATE 25 MG CAPSULE (FP) PO PRN (17:10)
[2019-04-21] MEDS: THIAMINE HCL 100 MG TABLET (FP) PO SCH (22:12)
[2019-04-21] MEDS: MELATONIN 5 MG TABLETS PO PRN (22:14)
[2019-04-22] MEDS: ACYCLOVIR 400 MG TABLET PO SCH ×3 (07:11→22:10)
[2019-04-22 09:42] LABS: HEMATOCRIT 42.6 % (35.4-49); HEMOGLOBIN 14.7 GM/dL (11.7-16.9); MCH 31.9 pg (25.7-33.7); MCHC 34.6 g/dl (32.0-35.9); MEAN CELL VOLUME 92.2 fl (80-96); MEAN PLT VOLUME 9.4 fl (7.5-11.1); PLATELET COUNT 258 K/MM3 (134-434); RBC 4.62 M/mm3 (4.00-5.60); RDW 12.3 % (11.9-15.9); WHITE BLOOD COUNT 5.8 K/mm3 (4.0-10.0)
[2019-04-22] MEDS ORDERED: METHADONE HCL 5 MG TABLET (FOR DETOX USE ONLY) ONE (09:43)
[2019-04-22] MEDS ORDERED: METHADONE HCL 10 MG TABLET (FOR DETOX USE ONLY) ONE (09:44)
[2019-04-22] MEDS ORDERED: METHADONE (DETOX) 20 MG, METHADONE (DETOX) 5 MG PO ONE (10:00)
[2019-04-22 10:05] LABS: ALBUMIN 3.2 g/dl (3.4-5.0); BILIRUBIN,TOTAL 0.3 mg/dL (0.2-1); BLOOD UREA NITROGEN 9.6 mg/dL (7-18); CALCIUM 8.9 mg/dL (8.5-10.1); CREATININE 0.9 mg/dL (0.55-1.3); POTASSIUM 4.2 mmol/L (3.5-5.1); TOT PROT 6.1 g/dl (6.4-8.2)
[2019-04-22] MEDS: NICOTINE 21 MG/24 HOURS TOPICAL PATCH TD SCH (10:13)
[2019-04-22] MEDS: PRENATAL VITAMINS W/ FOLIC ACID TABLET (FP) PO SCH (10:13)
[2019-04-22 10:38] LABS: RPR NONREACTIVE (NONREACTIVE)
--- NOTE | 2019-04-22 11:20 | PN ---
S COWS - Scale Resting Pulse: 0= [place] 80 or Below Sweatin= No chills or Flushing Restless Observation: 1= Difficult to Sit Still Pupil Size: 1= Pupils >than Normal Bone or Joint Aches: 1= Mild Discomfort Runny Nose/ Eye Tearin= Runny Nose/Eyes GI Upset > 30mins: 2= Nausea/Diarrhea Tremor Observation of Outstretched Hands: 2= Slight Tremor Visible Yawning Observation: 1= 1-2x During Session Anxiety or Irritability: 2=Irritable/Anxious Goose Flesh Skin: 0=Smooth Skin COWS Score: 12 S Progress Note (SOAP) Subjective: alert,irritable,anxious,interrupted sleep,tremor,pain in the body and back Objective: 04/22/19 11:19 Vital Signs Temperature 96.9 F L 04/22/19 09:45 Pulse Rate 73 04/22/19 09:45 Respiratory Rate 16 04/22/19 09:45 Blood Pressure 106/63 04/22/19 09:45 O2 Sat by Pulse Oximetry (%) Laboratory Last Values WBC 5.8 K/mm3 (4.0-10.0) 04/22/19 06:00 RBC 4.62 M/mm3 (4.00-5.60) 04/22/19 06:00 Hgb 14.7 GM/dL (11.7-16.9) 04/22/19 06:00 Hct 42.6 % (35.4-49) 04/22/19 06:00 MCV 92.2 fl (80-96) 04/22/19 06:00 MCH 31.9 pg (25.7-33.7) 04/22/19 06:00 MCHC 34.6 g/dl (32.0-35.9) 04/22/19 06:00 RDW 12.3 % (11.9-15.9) 04/22/19 06:00 Plt Count 258 K/MM3 (134-434) 04/22/19 06:00 MPV 9.4 fl (7.5-11.1) 04/22/19 06:00 Sodium 137 mmol/L (136-145) 04/22/19 06:00 Potassium 4.2 mmol/L (3.5-5.1) 04/22/19 06:00 Chloride 106 mmol/L (98-107) 04/22/19 06:00 Carbon Dioxide 26 mmol/L (21-32) 04/22/19 06:00 Anion Gap 5 MMOL/L (8-16) L 04/22/19 06:00 BUN 9.6 mg/dL (7-18) 04/22/19 06:00 Creatinine 0.9 mg/dL (0.55-1.3) 04/22/19 06:00 Est GFR (CKD-EPI)AfAm 132.37 04/22/19 06:00 Est GFR (CKD-EPI)NonAf 114.21 04/22/19 06:00 Random Glucose 87 mg/dL (74-106) 04/22/19 06:00 Calcium 8.9 mg/dL (8.5-10.1) 04/22/19 06:00 Total Bilirubin 0.3 mg/dL (0.2-1) 04/22/19 06:00 AST 26 U/L (15-37) 04/22/19 06:00 ALT 30 U/L (13-61) 04/22/19 06:00 Alkaline Phosphatase 41 U/L (45-117) L 04/22/19 06:00 Total Protein 6.1 g/dl (6.4-8.2) L 04/22/19 06:00 Albumin 3.2 g/dl (3.4-5.0) L 04/22/19 06:00 RPR Titer Nonreactive (NONREACTIVE) 04/22/19 06:00 HIV 1&2 Antibody Screen Negative 04/22/19 06:00 HIV P24 Antigen Negative 04/22/19 06:00 Assessment: 04/22/19 11:19 withdrawal symptom Plan: continue detox methadone regimen
[2019-04-22] MEDS: hydrOXYzine PAMOATE 25 MG CAPSULE (FP) PO PRN (22:10)
[2019-04-22] MEDS: THIAMINE HCL 100 MG TABLET (FP) PO SCH (22:10)
[2019-04-22] MEDS: MELATONIN 5 MG TABLETS PO PRN (22:11)
[2019-04-23] MEDS: ACYCLOVIR 400 MG TABLET PO SCH ×3 (05:48→22:03)
[2019-04-23] MEDS: hydrOXYzine PAMOATE 25 MG CAPSULE (FP) PO PRN (05:48)
[2019-04-23] MEDS: NICOTINE 21 MG/24 HOURS TOPICAL PATCH TD SCH (09:57)
[2019-04-23] MEDS: PRENATAL VITAMINS W/ FOLIC ACID TABLET (FP) PO SCH (09:57)
[2019-04-23] MEDS ORDERED: METHADONE HCL 10 MG TABLET (FOR DETOX USE ONLY) PO ONE (10:00)
--- NOTE | 2019-04-23 12:40 | PN ---
BHS COWS - Scale Resting Pulse: 1= [place] 81-100 Sweatin=Flushed/Facial Moisture Restless Observation: 1= Difficult to Sit Still Pupil Size: 1= Pupils >than Normal Bone or Joint Aches: 1= Mild Discomfort Runny Nose/ Eye Tearin= Nasal Congestion GI Upset > 30mins: 2= Nausea/Diarrhea Tremor Observation of Outstretched Hands: 1= Tremor [place], Not Seen Yawning Observation: 1= 1-2x During Session Anxiety or Irritability: 1=Feels Anxious/Irritable Goose Flesh Skin: 0=Smooth Skin COWS Score: 12 BHS Progress Note (SOAP) Subjective: INTERRUPTED SLEEP, SWEATS,NAUSEA Objective: 04/23/19 12:38 Vital Signs Temperature 96.4 F L 04/23/19 09:32 Pulse Rate 100 H 04/23/19 09:32 Respiratory Rate 16 04/23/19 09:32 Blood Pressure 110/59 L 04/23/19 09:32 O2 Sat by Pulse Oximetry (%) Laboratory Tests 04/22/19 04/22/19 04/22/19 06:00 06:00 06:00 WBC 5.8 RBC 4.62 Hgb 14.7 Hct 42.6 MCV 92.2 MCH 31.9 MCHC 34.6 RDW 12.3 Plt Count 258 MPV 9.4 Sodium 137 Potassium 4.2 Chloride 106 Carbon Dioxide 26 Anion Gap 5 L BUN 9.6 Creatinine 0.9 Est GFR (CKD-EPI)AfAm 132.37 Est GFR (CKD-EPI)NonAf 114.21 Random Glucose 87 Calcium 8.9 Total Bilirubin 0.3 AST 26 ALT 30 Alkaline Phosphatase 41 L Total Protein 6.1 L Albumin 3.2 L RPR Titer Nonreactive HIV 1&2 Antibody Screen Negative HIV P24 Antigen Negative PT AOX3 IN NAD AMBULATING Assessment: 04/23/19 12:38 WITHDRAWAL SX'S Plan: CONT. DETOX INCREASE FLUIDS
[2019-04-23] MEDS: MELATONIN 5 MG TABLETS PO PRN (22:03)
[2019-04-23] MEDS: THIAMINE HCL 100 MG TABLET (FP) PO SCH (22:03)
[2019-04-24] MEDS: ACYCLOVIR 400 MG TABLET PO SCH ×2 (06:21→14:25)
[2019-04-24] MEDS ORDERED: METHADONE HCL 5 MG TABLET (FOR DETOX USE ONLY) ONE (08:58)
[2019-04-24] MEDS ORDERED: METHADONE HCL 10 MG TABLET (FOR DETOX USE ONLY) ONE (08:59)
[2019-04-24] MEDS: PRENATAL VITAMINS W/ FOLIC ACID TABLET (FP) PO SCH (09:26)
[2019-04-24] MEDS: NICOTINE 21 MG/24 HOURS TOPICAL PATCH TD SCH (09:26)
[2019-04-24] MEDS ORDERED: METHADONE (DETOX) 10 MG, METHADONE (DETOX) 5 MG PO ONE (10:00)
--- NOTE | 2019-04-24 13:19 | PN ---
BHS COWS - Scale Resting Pulse: 2= [place] 101-120 Sweatin= Chills/Flushing Restless Observation: 1= Difficult to Sit Still Pupil Size: 0= Normal to Room Light Bone or Joint Aches: 1= Mild Discomfort Runny Nose/ Eye Tearin= Nasal Congestion GI Upset > 30mins: 0= None Tremor Observation of Outstretched Hands: 0= None Yawning Observation: 1= 1-2x During Session Anxiety or Irritability: 2=Irritable/Anxious Goose Flesh Skin: 0=Smooth Skin COWS Score: 9 BHS Progress Note (SOAP) Subjective: Anxious, Guarded, Fatigue. Objective: PATIENT A & O X 3, OBSERVED AMBULATING ON DETOX UNIT UNASSISTED. IN NO ACUTE DISTRESS. 04/24/19 13:18 Vital Signs Temperature 98.0 F 04/24/19 10:00 Pulse Rate 110 H 04/24/19 10:00 Respiratory Rate 18 04/24/19 10:00 Blood Pressure 123/66 04/24/19 10:00 O2 Sat by Pulse Oximetry (%) Laboratory Tests 04/22/19 04/22/19 04/22/19 06:00 06:00 06:00 WBC 5.8 RBC 4.62 Hgb 14.7 Hct 42.6 MCV 92.2 MCH 31.9 MCHC 34.6 RDW 12.3 Plt Count 258 MPV 9.4 Sodium 137 Potassium 4.2 Chloride 106 Carbon Dioxide 26 Anion Gap 5 L BUN 9.6 Creatinine 0.9 Est GFR (CKD-EPI)AfAm 132.37 Est GFR (CKD-EPI)NonAf 114.21 Random Glucose 87 Calcium 8.9 Total Bilirubin 0.3 AST 26 ALT 30 Alkaline Phosphatase 41 L Total Protein 6.1 L Albumin 3.2 L RPR Titer Nonreactive HIV 1&2 Antibody Screen Negative HIV P24 Antigen Negative LABS NOTED. Assessment: 04/24/19 13:19 WITHDRAWAL SYMPTOMS. TACHYCARDIA. 04/24/19 13:19 Plan: CONTINUE DETOX.
[2019-04-24 14:44] VITALS: BP 125/76; PULSE 84; TEMP 97.2
--- NOTE | 2019-04-24 16:04 | DS ---
[facility] Detox Discharge Summary Admission Date: 04/21/19 Discharge Date: 04/24/19 - History Present History: Opioid Dependence Additional Comments: DESPITE EFFORTS BY PHYSICAL THERAPY INSTRUCTOR AND BY NURSING STAFF TO ADDRESS PATIENT'S MEDICAL NEEDS / CONCERNS, PATIENT DOES NOT WISH TO REMAIN TO COMPLETE DETOX REGIMEN. RISKS OF LEAVING DETOX UNIT AGAINST MEDICAL ADVICE AND PRIOR TO COMPLETION OF DETOX REGIMEN EXPLAINED TO PATIENT. PATIENT ADVISED TO GO IMMEDIATELY TO NEAREST ER SHOULD ANY INTOLERABLE WITHDRAWAL / DETOX SYMPTOMS DEVELOP AT ANY TIME. PATIENT VERBALIZED UNDERSTANDING OF ALL INFORMATION / RECOMMENDATIONS PRESENTED TO HIM PRIOR TO DEPARTURE FROM DETOX UNIT. PATIENT LEFT DETOX UNIT IN STABLE MEDICAL CONDITION. Pertinent Past History: Depression, Nicotine Dependence. - Physical Exam Results Vital Signs: Vital Signs Temperature 97.2 F L 04/24/19 14:44 Pulse Rate 84 04/24/19 14:44 Respiratory Rate 18 04/24/19 14:44 Blood Pressure 125/76 04/24/19 14:44 O2 Sat by Pulse Oximetry (%) Pertinent Admission Physical Exam Findings: WITHDRAWAL SYMPTOMS. Laboratory Tests 04/22/19 04/22/19 04/22/19 06:00 06:00 06:00 WBC 5.8 RBC 4.62 Hgb 14.7 Hct 42.6 MCV 92.2 MCH 31.9 MCHC 34.6 RDW 12.3 Plt Count 258 MPV 9.4 Sodium 137 Potassium 4.2 Chloride 106 Carbon Dioxide 26 Anion Gap 5 L BUN 9.6 Creatinine 0.9 Est GFR (CKD-EPI)AfAm 132.37 Est GFR (CKD-EPI)NonAf 114.21 Random Glucose 87 Calcium 8.9 Total Bilirubin 0.3 AST 26 ALT 30 Alkaline Phosphatase 41 L Total Protein 6.1 L Albumin 3.2 L RPR Titer Nonreactive HIV 1&2 Antibody Screen Negative HIV P24 Antigen Negative LABS NOTED. - Medication Discharge Medications: Ambulatory Orders NK [No Known Home Medication] 05/18/14 - Diagnosis (1) Opioid dependence with withdrawal Current Visit: Yes Status: Acute - AMA Did Patient Leave Against Medical Advice: Yes (PATIENT DID NOT WISH TO REMAIN TO COMPLETE DETOX REGIMEN.)
[2019-04-25] MEDS ORDERED: METHADONE HCL 10 MG TABLET (FOR DETOX USE ONLY) PO ONE (10:00)
[2019-04-26] MEDS ORDERED: METHADONE HCL 5 MG TABLET (FOR DETOX USE ONLY) PO ONE (06:00)
== END 2019-04-24 16:04 | disposition left against medical advice (07) | DRG 770 ==
LOC: YASAS 12:47 → Y6N 15:54
PROVIDERS: ADMIT Allergy & Immunology; ATTEND Allergy & Immunology
PROC: HZ2ZZZZ Detoxification Services for Substance Abuse Treatment (ICD-10-PCS; principal; 2019-04-21)
DX: F11.23 Opioid dependence with withdrawal (principal); F17.210 Nicotine dependence, cigarettes, uncomplicated; R00.0 Tachycardia, unspecified; Z87.438 Personal history of other diseases of male genital organs
CPT/HCPCS: 36415; 80053; 85027; 86593; 87389